=== PATIENT | male | born 1975 | race American Indian/Alaskan Native ===

== ENCOUNTER 2020-12-22 23:29 | Emergency (ER) | payer OTHER ==
[2020-12-23 01:27] VITALS: BP 132/83
[2020-12-23] MEDS ORDERED: LIDOCAINE VISCOUS 2% 15 ML ORAL LIQD PO ONE (01:30)
[2020-12-23] MEDS ORDERED: ACETAMINOPHEN 325 MG TAB PO ONE (01:30)
--- NOTE | 2020-12-23 01:35 | Emergency Department Report ---
ED General Adult HPI - General Chief complaint: Sore Throat Stated complaint: NAUSEA Source: patient Mode of arrival: Ambulatory Limitations: No Limitations - History of Present Illness Initial comments: Patient is a 45-year-old -[place] male with no past medical history presents to the ED with complaint of acute onset persistent diffuse body aches and pains, sore throat, dysphagia, nasal and sinus congestion, frontal sinus pressure, bilateral ear pain and lack of appetite with nausea for the last 24 hours. Patient states that his symptoms got worse the last 8 hours when he developed chills and subjective fever. Patient denies dizziness, syncope, vomiting, diarrhea, abdominal pain, chest pain, shortness of breath, change in vision or cough. MD Complaint: Sore throat, body aches, fever, nausea -: Sudden, hour(s) (12) Location: mouth Radiation: non-radiation Severity scale (0 -10): 4 Quality: aching, sharp Consistency: constant Improves with: none Worsens with: none Associated Symptoms: denies other symptoms, fever/chills. denies: confusion, chest pain, cough, diaphoresis, malaise, nausea/vomiting, rash, seizure, shortness of breath, syncope, weakness Treatments Prior to Arrival: none - Related Data Previous Rx's Medication Instructions Recorded Last Taken Type Amoxicillin/Potassium Clav 1 each PO Q12H #20 tablet 12/23/20 Unknown Rx [Augmentin 875-125 Tablet] Ibuprofen [Motrin] 800 mg PO Q8HR PRN #30 tablet 12/23/20 Unknown Rx Lidocaine Viscous 2% 10 ml PO Q6H PRN #120 ml 12/23/20 Unknown Rx Ondansetron [Zofran Odt] 4 mg PO Q8HR PRN #15 tab.rapdis 12/23/20 Unknown Rx Allergies Allergy/AdvReac Type Severity Reaction Status Date / Time No Known Allergies Allergy Verified 12/23/20 01:23 ED Review of Systems ROS: Stated complaint: NAUSEA Other details as noted in HPI Constitutional: denies: chills, fever Eyes: denies: eye pain, eye discharge, vision change ENT: ear pain (Bilateral ear pain), throat pain, congestion, other (Frontal sinus pressure and headache) Respiratory: denies: cough, shortness of breath, wheezing Cardiovascular: denies: chest pain, palpitations Endocrine: no symptoms reported Gastrointestinal: nausea. denies: abdominal pain, vomiting, diarrhea Genitourinary: denies: urgency, dysuria Musculoskeletal: arthralgia, myalgia. denies: back pain, joint swelling Skin: denies: rash, lesions Neurological: headache. denies: weakness, paresthesias Psychiatric: denies: anxiety, depression Hematological/Lymphatic: denies: easy bleeding, easy bruising ED Past Medical Hx - Past Medical History Previous Medical History?: No - Medications Home Medications: Home Medications Medication Instructions Recorded Confirmed Last Taken Type Amoxicillin/Potassium Clav 1 each PO Q12H #20 tablet 12/23/20 Unknown Rx [Augmentin 875-125 Tablet] Ibuprofen [Motrin] 800 mg PO Q8HR PRN #30 tablet 12/23/20 Unknown Rx Lidocaine Viscous 2% 10 ml PO Q6H PRN #120 ml 12/23/20 Unknown Rx Ondansetron [Zofran Odt] 4 mg PO Q8HR PRN #15 tab.rapdis 12/23/20 Unknown Rx ED Physical Exam - General Limitations: No Limitations General appearance: alert, in no apparent distress - Head Head exam: Present: atraumatic, normocephalic, normal inspection - Eye Eye exam: Present: normal appearance, PERRL, EOMI Pupils: Present: normal accommodation - ENT ENT exam: Present: mucous membranes moist, other (Mild erythematous oropharynx and tonsils; bilateral erythematous bulging tympanic membrane with thick purulent discharge; grossly congested nasal passages with palpable frontal sinus tenderness) - Neck Neck exam: Present: normal inspection, full ROM, lymphadenopathy (Anterior cervical lymphadenopathy) - Respiratory Respiratory exam: Present: normal lung sounds bilaterally. Absent: respiratory distress, wheezes, rales, rhonchi, chest wall tenderness, accessory muscle use, decreased breath sounds, prolonged expiratory - Cardiovascular Cardiovascular Exam: Present: regular rate, normal rhythm, normal heart sounds. Absent: systolic murmur, diastolic murmur, rubs, gallop - GI/Abdominal GI/Abdominal exam: Present: soft, normal bowel sounds. Absent: tenderness, guarding, hyperactive bowel sounds, hypoactive bowel sounds, organomegaly - Extremities Exam Extremities exam: Present: normal inspection, full ROM, normal capillary refill - Back Exam Back exam: Present: normal inspection, full ROM. Absent: tenderness, CVA tenderness (R), CVA tenderness (L), muscle spasm, paraspinal tenderness, vertebral tenderness - Neurological Exam Neurological exam: Present: alert, oriented X3, CN II-XII intact, normal gait, reflexes normal - Psychiatric Psychiatric exam: Present: normal affect, normal mood - Skin Skin exam: Present: warm, dry, intact, normal color. Absent: rash ED Course Vital Signs 12/23/20 01:27 Temperature 100.1 F H Pulse Rate 95 H Respiratory 18 Rate Blood Pressure 132/83 [Right] O2 Sat by Pulse 100 Oximetry ED Medical Decision Making - Medical Decision Making This is a 26-year-old -[place] female with a history of morbid obesity presents to the ED with complaint of acute onset persistent left maxillary premolar molar toothaches with swollen gums for the last 2 days. Patient states that the pain radiates from her left cheek to the left holiness with persistent headache. In the ED, patient is alert and oriented x3 and is not in any distress but febrile in triage. Patient was treated for fever in the ED and also given antiemetics and viscous lidocaine for sore throat. Patient was discharged home on medications for pain as well as antiemetics and antibiotics and was advised to follow-up with his primary care physician in 7 to 10 days for reevaluation or return to the ED immediately if symptoms get worse. - Differential Diagnosis Otitis media; pharyngitis; tonsillitis; URI; COVID-19 Critical care attestation.: If time is entered above; I have spent that time in minutes in the direct care of this critically ill patient, excluding procedure time. ED Disposition Clinical Impression: Acute bacterial pharyngitis, Fever with chills, Acute otitis media with effusion of both ears, Acute upper respiratory infection Disposition: 01 HOME / SELF CARE / HOMELESS Is pt being admited?: No Does the pt Need Aspirin: No Condition: Stable Instructions: Otitis Media, Adult, [id number], Upper Respiratory Infection, Adult, [id number], Pharyngitis, [id number], Fever, Adult, [id number]-he-Fijm Additional Instructions: Take medication with food, drink plenty of fluids and follow-up with your primary care physician in 7 to 10 days for reevaluation. Return to the ED immediately if symptoms get worse. Prescriptions: Amoxicillin/Potassium Clav [Augmentin 875-125 Tablet] 1 each PO Q12H #20 tablet Lidocaine Viscous 2% 10 ml PO Q6H PRN #120 ml PRN Reason: Sore Throat Ibuprofen [Motrin] 800 mg PO Q8HR PRN #30 tablet PRN Reason: Pain , Severe (7-10) Ondansetron [Zofran Odt] 4 mg PO Q8HR PRN #15 tab.rapdis PRN Reason: Nausea Referrals: [facility] [Provider Group] - 7-10 days Forms: Work/School Release Form(ED) Time of Disposition: 01:32 Print Language: YI
== END 2020-12-23 02:17 | disposition home or self-care (01) ==
LOC: ED 23:29
DX: J02.9 Acute pharyngitis, unspecified (principal); R50.9 Fever, unspecified; H65.93 Unspecified nonsuppurative otitis media, bilateral; J06.9 Acute upper respiratory infection, unspecified
CPT/HCPCS: 99282

== ENCOUNTER 2021-08-10 21:31 | Emergency (ER) | payer OTHER ==
[2021-08-11] MEDS ORDERED: dexAMETHasone 4 MG/ML VIAL IM ONE (05:43)
--- NOTE | 2021-08-11 05:53 | Emergency Department Report ---
<RAMON DIAL - Last Filed: 08/11/21 05:46> ED General Adult HPI - General Chief complaint: Extremity Problem,Nontraumatic Stated complaint: PAIN IN LEG Time Seen by Provider: 08/11/21 03:59 Source: patient Mode of arrival: Ambulatory Limitations: No Limitations - History of Present Illness Initial comments: 46-year-old male with a past medical history of lumbar pain/sciatica with radicular pain diagnosed about 2 years ago presents emerged department complaining of another flareup. States that his last flareup was 2 months ago but he gets these bad flareups about twice a year. When therapies get to this magnitude he requires a visit emergency department and seeks a injection of steroids and a nonnarcotic medication with a muscle relaxer for home and asked what he would like to have today. He would note he reports no change in his symptoms no progression in his symptoms in regards to the flareups. He reports no loss of bowel or bladder, no saddle paresthesia, no hematuria, no and no dysuria, no fever, chills, sweats. Consistency: constant Improves with: none Worsens with: none Associated Symptoms: denies other symptoms Treatments Prior to Arrival: none - Related Data Previous Rx's Medication Instructions Recorded Last Taken Type Amoxicillin/Potassium Clav 1 each PO Q12H #20 tablet 12/23/20 Unknown Rx [Augmentin 875-125 Tablet] Ibuprofen [Motrin] 800 mg PO Q8HR PRN #30 tablet 12/23/20 Unknown Rx Lidocaine Viscous 2% 10 ml PO Q6H PRN #120 ml 12/23/20 Unknown Rx Ondansetron [Zofran Odt] 4 mg PO Q8HR PRN #15 tab.rapdis 12/23/20 Unknown Rx Ketorolac [Toradol] 10 mg PO Q6H PRN #14 08/11/21 Unknown Rx methOCARBAMOL [Robaxin TAB] 750 mg PO Q8H #20 08/11/21 Unknown Rx Allergies Allergy/AdvReac Type Severity Reaction Status Date / Time No Known Allergies Allergy Verified 12/23/20 01:23 ED Review of Systems Comment: All other systems reviewed and negative ED Past Medical Hx - Medications Home Medications: Home Medications Medication Instructions Recorded Confirmed Last Taken Type Amoxicillin/Potassium Clav 1 each PO Q12H #20 tablet 12/23/20 Unknown Rx [Augmentin 875-125 Tablet] Ibuprofen [Motrin] 800 mg PO Q8HR PRN #30 tablet 12/23/20 Unknown Rx Lidocaine Viscous 2% 10 ml PO Q6H PRN #120 ml 12/23/20 Unknown Rx Ondansetron [Zofran Odt] 4 mg PO Q8HR PRN #15 tab.rapdis 12/23/20 Unknown Rx Ketorolac [Toradol] 10 mg PO Q6H PRN #14 08/11/21 Unknown Rx methOCARBAMOL [Robaxin TAB] 750 mg PO Q8H #20 08/11/21 Unknown Rx ED Physical Exam - General Limitations: No Limitations General appearance: alert, in no apparent distress - Head Head exam: Present: atraumatic, normocephalic - Eye Eye exam: Present: normal appearance, PERRL, EOMI Pupils: Present: normal accommodation - ENT ENT exam: Present: normal exam, normal orophraynx, mucous membranes moist - Neck Neck exam: Present: normal inspection, full ROM - Respiratory Respiratory exam: Present: normal lung sounds bilaterally. Absent: respiratory distress - Cardiovascular Cardiovascular Exam: Present: regular rate, normal rhythm. Absent: systolic murmur, diastolic murmur, rubs, gallop - GI/Abdominal GI/Abdominal exam: Present: soft, normal bowel sounds. Absent: tenderness, guarding - Rectal Rectal exam: Present: deferred - Extremities Exam Extremities exam: Present: normal inspection, full ROM, normal capillary refill - Back Exam Back exam: Present: normal inspection, tenderness (Left sacroiliac joint region.), paraspinal tenderness, vertebral tenderness. Absent: CVA tenderness (R), CVA tenderness (L) - Neurological Exam Neurological exam: Present: alert, oriented X3, CN II-XII intact, normal gait. Absent: motor sensory deficit - Psychiatric Psychiatric exam: Present: normal affect, normal mood. Absent: anxious, flat affect, manic, suicidal ideation - Skin Skin exam: Present: warm, dry, intact, normal color. Absent: rash ED Medical Decision Making - Medical Decision Making Pt presents the emergency department complaining of back pain most consistent with his usual lumbar go with sciatica. back Pain Most Consistent with sciatica. Differential Diagnosis Includes Lumbar Go Versus Musculoskeletal Spasm, Strain Versus Sciatica. No Back Pain Red Flags on History or Physical. Presentation Not Consistent with Malignancy, Fracture, Cauda Equina, Abdominal Aortic An eurysm, Viscus Perforation, Pulmonary Embolism, Renal Colic, Pyelonephritis. Patient reports no B symptoms, trauma trauma, incontinence, saddle anesthesia, distal weakness, urinary symptoms and is a febrile. ED Disposition Clinical Impression: Sciatica Disposition: 01 HOME / SELF CARE / HOMELESS Is pt being admited?: No Does the pt Need Aspirin: No Condition: Stable Instructions: Radicular Pain, Sciatica, [id number]-Wdbf, Neuropathic Pain Prescriptions: methOCARBAMOL [Robaxin TAB] 750 mg PO Q8H #20 Ketorolac [Toradol] 10 mg PO Q6H PRN #14 PRN Reason: Pain Referrals: [facility] [Provider Group] - 3-5 Days Forms: Work/School Release Form(ED) <THO DOWNEY - Last Filed: 08/13/21 19:34> ED Review of Systems ROS: Stated complaint: PAIN IN LEG Other details as noted in HPI ED Course Vital Signs 08/10/21 08/11/21 22:30 06:18 Temperature 98.3 F Pulse Rate 98 H 68 Respiratory 18 16 Rate Blood Pressure 144/93 Blood Pressure 168/60 [Left] O2 Sat by Pulse 99 99 Oximetry ED Medical Decision Making - Medical Decision Making I have reviewed the PA/SENIOR BUSINESS CONSULTANT's note and plan of care. I was available for consultation as needed at all times during the patient's visit in the emergency department but was not consulted on this case. I agree with the plan to return to the ER if the patient's symptoms worsen or do not improve. Critical care attestation.: If time is entered above; I have spent that time in minutes in the direct care of this critically ill patient, excluding procedure time.
[2021-08-11 07:12] VITALS: BP 168/60
== END 2021-08-11 06:18 | disposition home or self-care (01) ==
LOC: ED 21:31
DX: M54.30 Sciatica, unspecified side (principal)
CPT/HCPCS: 96372; 99282; J1100

== ENCOUNTER 2021-09-02 05:40 | Emergency (ER) | payer SELFPAY ==
[2021-09-02] MEDS ORDERED: SODIUM CHLORIDE 0.9% 1000 ML 1,000 ML IV ONE (06:37)
[2021-09-02] MEDS ORDERED: ONDANSETRON 4 MG/2 ML INJ IV ONE (06:37)
[2021-09-02 06:59] LABS: Basophils % (Auto) 0.3 % (0.0-1.8); Eosinophils # (Auto) 0.2 K/mm3 (0.0-0.4); Eosinophils % (Auto) 2.3 % (0.0-4.3); Hematocrit 41.3 % (35.5-45.6); Lymphocytes # (Auto) 1.7 K/mm3 (1.2-5.4); Lymphocytes % (Auto) 25.1 % (13.4-35.0); Mean Corpuscular HGB Conc 34 % (32-34); Mean Corpuscular Volume 86 fl (84-94); Monocytes # (Auto) 0.4 K/mm3 (0.0-0.8); Monocytes % (Auto) 5.8 % (0.0-7.3); Platelet Count 155 K/mm3 (140-440); Red Blood Count 4.82 M/mm3 (3.65-5.03); Red Cell Distribution Width 15.2 % (13.2-15.2)
--- NOTE | 2021-09-02 07:02 | Emergency Department Report ---
ED N/V/D HPI - General Chief complaint: Nausea/Vomiting/Diarrhea Stated complaint: NAUSEA Time Seen by Provider: 09/02/21 06:54 Source: patient Mode of arrival: Ambulatory Limitations: No Limitations - History of Present Illness Initial comments: Patient is a 46-year-old male presenting to ED with complaint of nausea vomiting and diarrhea beginning yesterday. 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 He reports roughly 5 episodes of watery diarrhea. Denies fever or chills. He reports no other coworkers have similar symptoms. - Related Data Previous Rx's Medication Instructions Recorded Last Taken Type Amoxicillin/Potassium Clav 1 each PO Q12H #20 tablet 12/23/20 Unknown Rx [Augmentin 875-125 Tablet] Ibuprofen [Motrin] 800 mg PO Q8HR PRN #30 tablet 12/23/20 Unknown Rx Lidocaine Viscous 2% 10 ml PO Q6H PRN #120 ml 12/23/20 Unknown Rx Ondansetron [Zofran Odt] 4 mg PO Q8HR PRN #15 tab.rapdis 12/23/20 Unknown Rx Ketorolac [Toradol] 10 mg PO Q6H PRN #14 08/11/21 Unknown Rx methOCARBAMOL [Robaxin TAB] 750 mg PO Q8H #20 08/11/21 Unknown Rx Ondansetron [Zofran Odt] 4 mg PO Q8HR #10 tab.rapdis 09/02/21 Unknown Rx Allergies Allergy/AdvReac Type Severity Reaction Status Date / Time No Known Allergies Allergy Verified 12/23/20 01:23 ED Review of Systems ROS: Stated complaint: NAUSEA Other details as noted in HPI Comment: All other systems reviewed and negative Constitutional: denies: chills, fever Respiratory: denies: cough, shortness of breath, wheezing Cardiovascular: denies: chest pain, palpitations Endocrine: no symptoms reported Gastrointestinal: nausea, vomiting, diarrhea Musculoskeletal: denies: back pain, joint swelling, arthralgia Skin: denies: rash, lesions Neurological: denies: headache, weakness, paresthesias Psychiatric: denies: anxiety, depression ED Past Medical Hx - Medications Home Medications: Home Medications Medication Instructions Recorded Confirmed Last Taken Type Amoxicillin/Potassium Clav 1 each PO Q12H #20 tablet 12/23/20 Unknown Rx [Augmentin 875-125 Tablet] Ibuprofen [Motrin] 800 mg PO Q8HR PRN #30 tablet 12/23/20 Unknown Rx Lidocaine Viscous 2% 10 ml PO Q6H PRN #120 ml 12/23/20 Unknown Rx Ondansetron [Zofran Odt] 4 mg PO Q8HR PRN #15 tab.rapdis 12/23/20 Unknown Rx Ketorolac [Toradol] 10 mg PO Q6H PRN #14 08/11/21 Unknown Rx methOCARBAMOL [Robaxin TAB] 750 mg PO Q8H #20 08/11/21 Unknown Rx Ondansetron [Zofran Odt] 4 mg PO Q8HR #10 tab.rapdis 09/02/21 Unknown Rx ED Physical Exam - General Limitations: No Limitations General appearance: alert, in no apparent distress - Head Head exam: Present: atraumatic, normocephalic - Respiratory Respiratory exam: Present: normal lung sounds bilaterally. Absent: respiratory distress - Cardiovascular Cardiovascular Exam: Present: regular rate, normal rhythm. Absent: systolic murmur, diastolic murmur, rubs, gallop - GI/Abdominal GI/Abdominal exam: Present: soft. Absent: distended, tenderness - Rectal Rectal exam: Present: deferred - Neurological Exam Neurological exam: Present: alert, oriented X3 - Psychiatric Psychiatric exam: Present: normal affect, normal mood - Skin Skin exam: Present: warm, dry, intact, normal color ED Course Vital Signs 09/02/21 09/02/21 06:00 07:49 Temperature 98.9 F Pulse Rate 89 76 Respiratory 16 16 Rate Blood Pressure 120/78 125/81 [Right] O2 Sat by Pulse 98 100 Oximetry ED Medical Decision Making - Lab Data Result diagrams: 09/02/21 06:45 09/02/21 06:45 - Medical Decision Making Patient presenting with complaint of nausea vomiting diarrhea beginning yesterday. CBC and CMP are unremarkable. He was given 1 L normal saline bolus along with IV Zofran. On reassessment patient states he feels better. He is stable for discharge home with return precautions. Critical care attestation.: If time is entered above; I have spent that time in minutes in the direct care of this critically ill patient, excluding procedure time. ED Disposition Clinical Impression: Nausea vomiting and diarrhea Disposition: 01 HOME / SELF CARE / HOMELESS Is pt being admited?: No Condition: Stable Instructions: Nausea and Vomiting, Adult, Diarrhea, Adult Time of Disposition: 08:30
[2021-09-02 07:41] LABS: Alanine Aminotransferase 15 units/L (7-56); Albumin 4.4 g/dL (3.9-5); BUN/Creatinine Ratio 13; Blood Urea Nitrogen 15 mg/dL (9-20); Calcium 9.2 mg/dL (8.4-10.2); Hemolysis Index 10
[2021-09-02 09:27] VITALS: BP 121/64
== END 2021-09-02 09:20 | disposition home or self-care (01) ==
LOC: ED 05:40
DX: R11.2 Nausea with vomiting, unspecified (principal); R19.7 Diarrhea, unspecified
CPT/HCPCS: 36415; 80053; 83690; 85025; 96361; 96374; 99283; J2405; J7030